=== PATIENT | male | born 1950 | race Caucasian/White ===

== ENCOUNTER 2018-08-22 08:48 | Emergency (ER) | payer BC, MEDICARE ==
--- NOTE | 2018-08-22 09:17 | EDM.PDOC ---
ED HPI GENERAL MEDICAL PROBLEM - General Chief Complaint: General Stated Complaint: STOMACH PAIN FLU SYMPTOMS Time Seen by Provider: 08/22/18 08:56 Source of Information: Reports: Patient, RN, RN Notes Reviewed History Limitations: Reports: No Limitations - History of Present Illness INITIAL COMMENTS - FREE TEXT/NARRATIVE: Patient presents to the ED at [facility] with URI symptoms. Patient denies any eye or ear symptoms. He complains of sinus pressure and pain. He feels somewhat dehydrated. He had a sore throat, but this has resolved. He is trying to stay well hydrated. No close contact with similar symptoms. Patient states he has significant sinus pressure and pain. Denies any ear problems. No fevers or chills. Patient also concerned about diarrhea that started yesterday. He states he has had several liquid stools. No abd pain. No cramping. No urinary symptoms. - Related Data Allergies Allergy/AdvReac Type Severity Reaction Status Date / Time sulfamethoxazole Allergy Rash Verified 11/24/13 08:49 trimethoprim Allergy Rash Verified 11/24/13 08:49 Home Meds: Home Meds Insulin Glarg,Human.Rec.Analog [Lantus Solostar] 10 units SQ BEDTIME 10/26/13 [ History] Liraglutide [Victoza 2-Varinder] 1.8 mg SQ DAILY 10/26/13 [History] glyBURIDE/Metformin [glyBURIDE/Metformin 5-500 MG] 5 - 500 mg PO BID 10/26/13 [ History] Metoclopramide [Reglan] 10 mg PO ACBED 11/21/13 [History] Sildenafil [Viagra] 50 mg PO ASDIRECTED PRN 11/21/13 [History] Amoxicillin/Potassium Clav [Augmentin 875-125 Tablet] 1 each PO BID 10 Days #20 tablet 08/22/18 [Rx] ED ROS GENERAL - Review of Systems Review Of Systems: See Below Constitutional: Denies: Fever, Chills HEENT: Reports: Rhinitis, Sinus Problem. Denies: Ear Pain, Throat Pain, Throat Swelling Respiratory: Denies: Shortness of Breath, Cough Cardiovascular: Denies: Chest Pain, Palpitations Skin: Reports: No Symptoms Neurological: Reports: No Symptoms ED EXAM, GENERAL - Physical Exam Exam: See Below Exam Limited By: No Limitations General Appearance: Alert, No Apparent Distress Eye Exam: Bilateral Eye: Normal Inspection, PERRL Ears: Normal Canal, Normal TMs Ear Exam: Bilateral Ear: TM normal Nose: Nasal Tenderness, Nasal Drainage, Other (Frontal and maxillary sinus pressure/pain to percussion) Throat/Mouth: Other (dry membranes; normal posterior oropharynx) Neck: Supple Respiratory/Chest: No Respiratory Distress, Lungs Clear, Decreased Breath Sounds Cardiovascular: Normal Peripheral Pulses, Regular Rate, Rhythm Neurological: Alert, Oriented Skin Exam: Warm, Dry, Intact Departure - Departure Time of Disposition: 09:21 Disposition: Home, Self-Care 01 Condition: Good Clinical Impression: Acute bacterial sinusitis, Sore throat Diarrhea Qualifiers: Diarrhea type: unspecified type Qualified Code(s): R19.7 - Diarrhea, unspecified - Discharge Information *PRESCRIPTION DRUG MONITORING PROGRAM REVIEWED*: Not Applicable *COPY OF PRESCRIPTION DRUG MONITORING REPORT IN PATIENT HAYLEE: Not Applicable Prescriptions: Amoxicillin/Potassium Clav [Augmentin 875-125 Tablet] 1 each PO BID 10 Days #20 tablet Instructions: Sinusitis, Adult Referrals: Smitha King DO [Physician] - Forms: ED Department Discharge Additional Instructions: 1. Stay well hydrated and rest 2. Take antibiotic for the full coarse, even if you are feeling better 3. Try and probiotic 4. Use Tylenol for pain 5. LOTS of water 6. See Dr. King as symptoms warrant - Problem List Review Problem List Initiated/Reviewed/Updated: Yes - Assessment/Plan Assessment:: Acute bacterial sinusitis Sore throat Viral gastroenteritis Plan: Start Augmentin for BID for 10 days. SE discussed. Stay well hydrated. May try Imodium as directed on package. See your PCP as symptoms warrant
== END 2018-08-22 09:40 | disposition home or self-care (01) ==
LOC: VM.ED 08:48
DX: J01.90 Acute sinusitis, unspecified (principal); B96.89 Other specified bacterial agents as the cause of diseases classified elsewhere; A08.4 Viral intestinal infection, unspecified; Z88.2 Allergy status to sulfonamides; Z88.8 Allergy status to other drugs, medicaments and biological substances; Z79.899 Other long term (current) drug therapy
CPT/HCPCS: 99283

== ENCOUNTER 2018-12-14 13:23 | Emergency (ER) | payer BC, MEDICARE ==
--- NOTE | 2018-12-14 16:02 | CR ---
[id number] RAD/RAD Humerus Left 2V EXAM: LEFT HUMERUS 2 VIEWS INDICATION: Fall several days ago. COMPARISON: None. 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 Remodeling of the undersurface of the acromion may relate to chronic rotator cuff tearing. No acute fracture or dislocation is identified. IMPRESSION: 1. No acute findings. Rustam Goldberg MD 12/14/18 [id number] Thank you for allowing us to participate in the care of your patient.
[2018-12-14] MEDS: Acetaminophen/HYDROcodone 325-10 MG Tab PO ONE (16:07)
[2018-12-14] MEDS: Take Home: Acetaminophen/HYDROcodone 325-5 MG, 5 Tab Pack PO ONE (16:24)
[2018-12-14 17:31] VITALS: BP 152/77
--- NOTE | 2018-12-22 05:08 | EDM.PDOC ---
ED HPI GENERAL MEDICAL PROBLEM - General Chief Complaint: Upper Extremity Injury/Pain Stated Complaint: FELL HURT LEFT ARM/WRIST Time Seen by Provider: 12/14/18 13:30 Source of Information: Reports: Patient, RN Notes Reviewed History Limitations: Reports: No Limitations - History of Present Illness INITIAL COMMENTS - FREE TEXT/NARRATIVE: Pt. presents to ER with complaints of L shoulder/upper arm pain. He was at work at time of accident. He was attempting to pull a stuck trailer pin out that was stuck. He subsequently fell backward onto an outstretched L arm. He complains of pain to his shoulder/upper portion of upper arm. No numbness or tingling to the extremity. He did not strike his head. He landed on his backside and was carrying a billfold and is subsequently experiencing so L buttock pain but it is resolving. Denies any numbness or tingling in the L arm. No crepitus. He states this happened immediately before coming to ER. Onset: Today Onset Date: 12/22/18 Location: Reports: Upper Extremity, Left Left Arm Pain Score (Numeric/FACES): 2 Left Upper Leg Pain Score (Numeric/FACES): 2 - Related Data Allergies Allergy/AdvReac Type Severity Reaction Status Date / Time sulfamethoxazole Allergy Rash Verified 12/14/18 16:14 trimethoprim Allergy Rash Verified 12/14/18 16:14 Home Meds: Home Meds Insulin Glarg,Human.Rec.Analog [Lantus Solostar] 10 units SQ BEDTIME 10/26/13 [ History] Liraglutide [Victoza 2-Varinder] 1.8 mg SQ DAILY 10/26/13 [History] glyBURIDE/Metformin [glyBURIDE/Metformin 5-500 MG] 5 - 500 mg PO BID 10/26/13 [ History] Metoclopramide [Reglan] 10 mg PO ACBED 11/21/13 [History] Sildenafil [Viagra] 50 mg PO ASDIRECTED PRN 11/21/13 [History] Past Medical History Endocrine/Metabolic History: Reports: Diabetes, Type II Social & Family History - Tobacco Use Smoking Status *Q: Never Smoker ED ROS GENERAL - Review of Systems Review Of Systems: See Below Constitutional: Reports: No Symptoms HEENT: Reports: No Symptoms Respiratory: Reports: No Symptoms Cardiovascular: Reports: No Symptoms Endocrine: Reports: No Symptoms GI/Abdominal: Reports: No Symptoms : Reports: No Symptoms Musculoskeletal: Reports: Shoulder Pain, Joint Pain (L shoulder) Skin: Reports: No Symptoms Neurological: Reports: No Symptoms ED EXAM, GENERAL - Physical Exam Exam: See Below Exam Limited By: No Limitations General Appearance: Alert, WD/WN, No Apparent Distress Extremities: Normal Inspection, No Pedal Edema, Normal Capillary Refill, Arm Pain, Limited Range of Motion, Other (No crepitus noted. CMS intact. ) Course - Vital Signs Last Recorded V/S: Last Vital Signs Temp 36.7 C 12/14/18 13:30 Pulse 60 12/14/18 13:30 Resp 16 12/14/18 13:30 BP 152/77 H 12/14/18 13:30 Pulse Ox 98 12/14/18 13:30 - Orders/Labs/Meds Meds: Medications Discontinued Medications Generic Name Dose Route Start Last Admin Trade Name Bhupinder PRN Reason Stop Dose Admin Hydrocodone Bitart/Acetaminophen 1 tab 12/14/18 16:02 12/14/18 16:07 [place] 325-10 Mg PO 12/14/18 16:03 1 tab ONETIME ONE Administration Hydrocodone Bitart/Acetaminophen 2 packet 12/14/18 16:16 12/14/18 16:24 Take Home: Acetam/Hydrocodon 325-5 Mg, 5 Pack PO 12/14/18 16:17 2 packet ONETIME ONE Administration - Radiology Interpretation Free Text/Narrative:: radiographs of the L humerus and shoulder were negative. Departure - Departure Time of Disposition: 14:30 Disposition: Home, Self-Care 01 Condition: Good Clinical Impression: Sprain of shoulder, left - Discharge Information Instructions: Acetaminophen; Hydrocodone tablets or capsules, RICE Therapy for Routine Care of Injuries, [id number], Shoulder Sprain Referrals: Smitha King DO [Primary Care Provider] - Forms: ED Department Discharge Additional Instructions: Home to rest Ibuprofen 200mg 2 tabs every 4-6 hours as needed for pain [place] 5/325mg 1 every 4-6 hours for severe pain Ice painful areas for 10-15 min every 1-2 hours Follow-up in clinic in 10-14 days for recheck with primary care, sooner if not gradually improving. - Problem List Review Problem List Initiated/Reviewed/Updated: Yes - Assessment/Plan Plan: Home to rest Ibuprofen 200mg 2 tabs every 4-6 hours as needed for pain [place] 5/325mg 1 every 4-6 hours for severe pain Ice painful areas for 10-15 min every 1-2 hours Follow-up in clinic in 10-14 days for recheck with primary care, sooner if not gradually improving.
== END 2018-12-14 16:25 | disposition home or self-care (01) ==
LOC: VM.ED 13:23
DX: S43.402A Unspecified sprain of left shoulder joint, initial encounter (principal); E11.9 Type 2 diabetes mellitus without complications; Z88.2 Allergy status to sulfonamides; Z88.1 Allergy status to other antibiotic agents; Z79.899 Other long term (current) drug therapy; Z79.4 Long term (current) use of insulin; W22.8XXA Striking against or struck by other objects, initial encounter
CPT/HCPCS: 73060-LT; 99283-25; A9270-GY

== ENCOUNTER 2020-05-02 14:35 | Emergency (ER) | payer OTHER ==
[2020-05-02] MEDS ORDERED: Take Home: Ondansetron 4 MG Tab.DIS, 2 Tab Pack PO ONE (15:05)
--- NOTE | 2020-05-02 15:13 | EDM.PDOC ---
ED HPI GENERAL MEDICAL PROBLEM - General Chief Complaint: General Time Seen by Provider: 05/02/20 14:35 Source of Information: Reports: Patient History Limitations: Reports: No Limitations - History of Present Illness INITIAL COMMENTS - FREE TEXT/NARRATIVE: Pt. presents to ER with complaints of cough, congestion, fatigue, diarrhea, and shortness of breath. He states that his cough is productive of esparza sputum. He states that he was seen in the [facility] for this on Sunday and was started on Azithromycin. His presentation medical center chart was reviewed, and there was no mention of cough. The reason for the visit at that time was chest pain post fall. Pt. denies any ill contacts that he was aware of. He was not tested for covid 19 or influenza in the clinic. Onset Date: 04/30/20 Location: Reports: Chest, Generalized - Related Data Allergies Allergy/AdvReac Type Severity Reaction Status Date / Time sulfamethoxazole Allergy Rash Verified 05/02/20 14:55 trimethoprim Allergy Rash Verified 05/02/20 14:55 Home Meds: Home Meds Insulin Glarg,Human.Rec.Analog [Lantus Solostar] 10 units SQ BEDTIME 10/26/13 [History] Liraglutide [Victoza 2-Varinder] 1.8 mg SQ DAILY 10/26/13 [History] Sildenafil [Viagra] 50 mg PO ASDIRECTED PRN 11/21/13 [History] Albuterol [Take Home: Albuterol 18 GM, 1 INH Pack] 2 puff IH Q4H PRN 05/02/20 [History] Aspirin [Aspirin EC] 81 mg PO DAILY 05/02/20 [History] Azithromycin 250 mg PO ASDIRECTED 05/02/20 [History] Dicyclomine [Bentyl] 10 mg PO TID 05/02/20 [History] Insulin Aspart [NovoLOG] 8 unit SQ WITHMEALSANDBED 05/02/20 [History] Propranolol HCl [Propranolol] 10 mg PO DAILY PRN 05/02/20 [History] metFORMIN HCl [Metformin HCl] 1,000 mg PO BID 05/02/20 [History] Past Medical History Cardiovascular History: Reports: High Cholesterol, Hypertension Respiratory History: Reports: Asthma Gastrointestinal History: Reports: Diverticulosis Musculoskeletal History: Reports: Other (See Below) Other Musculoskeletal History: plantar fascitis Endocrine/Metabolic History: Reports: Diabetes, Type II, Obesity/BMI 30+ Social & Family History - Tobacco Use Tobacco Use Status *Q: Never Tobacco User - Recreational Drug Use Recreational Drug Use: No ED ROS GENERAL - Review of Systems Review Of Systems: See Below Constitutional: Reports: Fatigue. Denies: Fever, Chills HEENT: Reports: Rhinitis, Throat Pain Respiratory: Reports: Shortness of Breath, Cough Cardiovascular: Reports: No Symptoms Endocrine: Reports: No Symptoms GI/Abdominal: Reports: Nausea. Denies: Vomiting : Reports: No Symptoms Musculoskeletal: Reports: No Symptoms Skin: Reports: No Symptoms Neurological: Reports: No Symptoms Psychiatric: Reports: No Symptoms Hematologic/Lymphatic: Reports: No Symptoms Immunologic: Reports: No Symptoms ED EXAM, GENERAL - Physical Exam Exam: See Below Exam Limited By: No Limitations General Appearance: Alert, WD/WN, No Apparent Distress Eye Exam: Bilateral Eye: EOMI, Normal Fundi, PERRL Throat/Mouth: Normal Inspection, Normal Lips, Normal Teeth, Normal Gums, Normal Oropharynx, Normal Voice, No Airway Compromise Head: Atraumatic, Normocephalic Neck: Normal Inspection, Supple, Non-Tender, Full Range of Motion Respiratory/Chest: No Respiratory Distress, Lungs Clear, Normal Breath Sounds, No Accessory Muscle Use, Chest Non-Tender Cardiovascular: Normal Peripheral Pulses, Regular Rate, Rhythm, No Edema, No JVD, No Murmur, No Rub GI/Abdominal: Soft, Non-Tender (Male) Exam: Deferred Rectal (Males) Exam: Deferred Back Exam: Normal Inspection, Full Range of Motion Extremities: Normal Inspection, Normal Range of Motion, Non-Tender, No Pedal Edema, Normal Capillary Refill Neurological: Alert, Oriented, CN II-XII Intact, Normal Cognition, Normal Reflexes, No Motor/Sensory Deficits Psychiatric: Normal Affect, Normal Mood Skin Exam: Warm, Dry, Intact, Normal Color Lymphatic: No Adenopathy Course - Vital Signs Last Recorded V/S: Last Vital Signs Temp 36.7 C 05/02/20 14:35 Pulse 65 05/02/20 14:35 Resp 16 05/02/20 14:35 BP 139/71 05/02/20 14:35 Pulse Ox 97 05/02/20 14:35 - Orders/Labs/Meds Orders: Active Orders 24 hr Category Date Time Status CORONAVIRUS COVID-19 PCR PHL Stat Lab 05/02/20 14:42 Ordered Labs: Laboratory Tests 05/02/20 Range/Units 14:45 SARS CoV-2 RNA Rapid ANDRY Positive H (NEGATIVE) Meds: Medications Discontinued Medications Generic Name Dose Route Start Last Admin Trade Name Bhupinder PRN Reason Stop Dose Admin Ondansetron HCl 2 packet 05/02/20 15:05 Take Home: Ondansetron Odt 4 Mg, 2 Tab Pack PO 05/02/20 15:06 ONETIME ONE Departure - Departure Time of Disposition: 15:34 Disposition: Home, Self-Care 01 Clinical Impression: COVID-19 - Discharge Information Instructions: COVID-19 Frequently Asked Questions, COVID-19, Ondansetron oral dissolving tablet Referrals: Smitha King DO [Primary Care Provider] - Forms: ED Department Discharge Additional Instructions: Home to rest. Dept of health will be in contact with you regarding how long you and your /contacts need to quarantine for. It is usually 14 days, but they will give you better information based on your symptom onset. Finish the Azithromyin. This is an antibiotic, but you've been on it since the , and might as well complete the course. Zofran ODT 4mg 1 every 4-6 hours as needed for nausea/vomiting. Tylenol as needed for fever. Return to ER if you have trouble breathing or other worrisome signs/symptoms. Feel free to call if you have questions. Sepsis Event Note (ED) - Evaluation Sepsis Screening Result: No Definite Risk - Focused Exam Vital Signs: Vital Signs Temp Pulse Resp BP Pulse Ox 05/02/20 14:35 36.7 C 65 16 139/71 97 - Problem List Review Problem List Initiated/Reviewed/Updated: Yes - My Orders Last 24 Hours: My Active Orders 05/02/20 14:42 CORONAVIRUS COVID-19 PCR PHL Stat - Assessment/Plan Last 24 Hours: My Active Orders 05/02/20 14:42 CORONAVIRUS COVID-19 PCR PHL Stat Plan: Home to rest. Dept of health will be in contact with you regarding how long you and your /contacts need to quarantine for. It is usually 14 days, but they will give you better information based on your symptom onset. Finish the Azithromyin. This is an antibiotic, but you've been on it since the , and might as well complete the course. Zofran ODT 4mg 1 every 4-6 hours as needed for nausea/vomiting. Tylenol as needed for fever. Return to ER if you have trouble breathing or other worrisome signs/symptoms. Feel free to call if you have questions.
== END 2020-05-02 15:45 | disposition home or self-care (01) ==
LOC: VM.ED 14:35
DX: U07.1 COVID-19 (principal); I10 Essential (primary) hypertension; J45.909 Unspecified asthma, uncomplicated; E11.9 Type 2 diabetes mellitus without complications; E66.9 Obesity, unspecified; Z88.2 Allergy status to sulfonamides; Z79.4 Long term (current) use of insulin; Z79.899 Other long term (current) drug therapy
CPT/HCPCS: 87804; 87804-59; 99283; 99284; A9270-GY; U0002

== ENCOUNTER 2023-06-02 21:28 | Emergency (ER) | payer OTHER, MEDICARE | END 2023-06-02 22:39 | disposition home or self-care (01) | LOC: VM.ED 21:28 | DX: R07.81 Pleurodynia (principal); M25.511 Pain in right shoulder; I10 Essential (primary) hypertension; J45.909 Unspecified asthma, uncomplicated; E78.00 Pure hypercholesterolemia, unspecified; E11.9 Type 2 diabetes mellitus without complications; E66.9 Obesity, unspecified; Z68.41 Body mass index [BMI] 40.0-44.9, adult; Z86.16 Personal history of COVID-19; Z79.84 Long term (current) use of oral hypoglycemic drugs; Z79.82 Long term (current) use of aspirin; Z79.899 Other long term (current) drug therapy; Z79.4 Long term (current) use of insulin; Z88.1 Allergy status to other antibiotic agents; Z88.2 Allergy status to sulfonamides; Y04.8XXA Assault by other bodily force, initial encounter; Y92.511 Restaurant or cafe as the place of occurrence of the external cause | CPT/HCPCS: 71101-LT; 99283 ==

== ENCOUNTER 2024-09-07 18:47 | Emergency (ER) | payer MEDICARE, OTHER ==
[2024-09-07 19:42] LABS: BASOPHILS PERCENT AUTO 0.1 % (0.2-1.2); EOSINOPHILS PERCENT AUTO 0.2 % (0.0-4.0); HEMATOCRIT 39.4 % (40.0-52.0); HEMOGLOBIN 13.3 g/dL (14.0-18.0); IMMATURE GRAN ABSOLUTE AUTO 0.02 x10^3/uL (0.00-0.07); LYMPHOCYTES ABSOLUTE AUTO 0.5 x10^3/uL (1.0-4.8); LYMPHOCYTES PERCENT AUTO 4.8 % (25.0-50.0); MEAN CORPUSCULAR HEMOGLOBIN 30.5 pg (26.0-32.0); MEAN CORPUSCULAR HGB CONC 33.8 g/dL (32.0-36.0); MEAN CORPUSCULAR VOLUME 90.4 fL (78.0-93.0); MONOCYTES ABSOLUTE AUTO 0.4 x10^3/uL (0.0-0.8); MONOCYTES PERCENT AUTO 3.2 % (2.0-11.0); NEUTROPHILS ABSOLUTE AUTO 9.9 x10^3/uL (1.8-7.7); NEUTROPHILS PERCENT AUTO 91.5 % (50.0-80.0); RED BLOOD CELL COUNT 4.36 x10^6/uL (4.5-6.0); WHITE BLOOD CELL COUNT,WBC 10.8 x10^3/uL (4.0-10.0)
[2024-09-07] MEDS: Lactated Ringers 1,000 ML IV SCH (19:45)
[2024-09-07 19:49] LABS: PLATELET COUNT,PLT 196 x10^3/uL (130-400)
[2024-09-07] MEDS: Acetaminophen 325 MG Tab PO ONE (19:50)
[2024-09-07 20:08] LABS: A/G RATIO 0.94; ALBUMIN 3.2 g/dL (3.4-5.0); BILIRUBIN TOTAL 0.5 mg/dL (0.2-1.0); CALCIUM 8.6 mg/dL (8.5-10.1); CREATININE 0.8 mg/dL (0.70-1.30); EST CRCL DRUG DOSING (CG) 79.56 mL/min; MAGNESIUM 1.7 mg/dL (1.8-2.4); PROTEIN TOTAL,TP 6.6 g/dL (6.4-8.2)
[2024-09-07] MEDS: Ondansetron 4 MG/2 ML SDV IVPUSH ONE (20:36)
[2024-09-07] MEDS: Ibuprofen 200 MG Tab PO STA (21:00)
== END 2024-09-07 21:15 | disposition home or self-care (01) ==
LOC: VM.ED 18:47
DX: K52.9 Noninfective gastroenteritis and colitis, unspecified (principal); I10 Essential (primary) hypertension; J45.909 Unspecified asthma, uncomplicated; E11.9 Type 2 diabetes mellitus without complications; E66.9 Obesity, unspecified; Z68.41 Body mass index [BMI] 40.0-44.9, adult; Z86.16 Personal history of COVID-19; Z88.8 Allergy status to other drugs, medicaments and biological substances; Z79.4 Long term (current) use of insulin; Z79.51 Long term (current) use of inhaled steroids; Z79.82 Long term (current) use of aspirin; Z79.84 Long term (current) use of oral hypoglycemic drugs; Z79.899 Other long term (current) drug therapy
CPT/HCPCS: 80053; 83605; 83735; 85025; 96361; 96374; 99284; 99284-25; A9270-GY; J2405; J7120

== ENCOUNTER 2024-09-27 21:48 | Emergency (ER) | payer MEDICARE ==
[2024-09-27] MEDS ORDERED: Sodium Chloride 0.9% 10 ML Syringe FLUSH PRN (22:24)
[2024-09-27 22:40] LABS: BASOPHILS PERCENT AUTO 0.1 % (0.2-1.2); EOSINOPHILS ABSOLUTE AUTO 0.1 x10^3/uL (0.0-0.5); EOSINOPHILS PERCENT AUTO 0.8 % (0.0-4.0); HEMATOCRIT 36.4 % (40.0-52.0); HEMOGLOBIN 12.3 g/dL (14.0-18.0); IMMATURE GRAN ABSOLUTE AUTO 0.04 x10^3/uL (0.00-0.07); LYMPHOCYTES ABSOLUTE AUTO 1.1 x10^3/uL (1.0-4.8); LYMPHOCYTES PERCENT AUTO 7.9 % (25.0-50.0); MEAN CORPUSCULAR HEMOGLOBIN 30.6 pg (26.0-32.0); MEAN CORPUSCULAR HGB CONC 33.8 g/dL (32.0-36.0); MEAN CORPUSCULAR VOLUME 90.5 fL (78.0-93.0); MONOCYTES ABSOLUTE AUTO 1.1 x10^3/uL (0.0-0.8); MONOCYTES PERCENT AUTO 7.8 % (2.0-11.0); NEUTROPHILS ABSOLUTE AUTO 11.3 x10^3/uL (1.8-7.7); NEUTROPHILS PERCENT AUTO 83.1 % (50.0-80.0); PLATELET COUNT,PLT 253 x10^3/uL (130-400); RED BLOOD CELL COUNT 4.02 x10^6/uL (4.5-6.0); WHITE BLOOD CELL COUNT,WBC 13.6 x10^3/uL (4.0-10.0)
[2024-09-27] MEDS: Albuterol/Ipratropium 3.0-0.5 MG/3 ML Neb Soln NEB ONE ×2 (22:40→23:39)
[2024-09-27] MEDS: methylPREDNISolone Sodium Succinate 125 MG/2 ML SDV IVPUSH ONE (22:42)
[2024-09-27 22:54] LABS: A/G RATIO 0.86; ALBUMIN 3.2 g/dL (3.4-5.0); ANION GAP 12.5 mmol/L (5-15); BILIRUBIN TOTAL 0.4 mg/dL (0.2-1.0); CALCIUM 8.9 mg/dL (8.5-10.1); CREATININE 0.8 mg/dL (0.70-1.30); EST CRCL DRUG DOSING (CG) 76.89 mL/min; MAGNESIUM 1.8 mg/dL (1.8-2.4); POTASSIUM,K 4.5 mmol/L (3.5-5.1); PROTEIN TOTAL,TP 6.9 g/dL (6.4-8.2)
[2024-09-27] MEDS: Budesonide 0.5 MG/2 ML Neb Susp NEB ONE (23:47)
[2024-09-27] MEDS: Azithromycin 250 MG Tab PO ONE (23:47)
[2024-09-27] MEDS: Take Home: Azithromycin 250 MG, 2 Tab Pack PO ONE (23:48)
== END 2024-09-28 00:07 | disposition home or self-care (01) ==
LOC: VM.ED 21:48
DX: J20.5 Acute bronchitis due to respiratory syncytial virus (principal); I10 Essential (primary) hypertension; E78.00 Pure hypercholesterolemia, unspecified; E11.9 Type 2 diabetes mellitus without complications; J45.909 Unspecified asthma, uncomplicated; Z86.16 Personal history of COVID-19; Z88.2 Allergy status to sulfonamides; Z88.8 Allergy status to other drugs, medicaments and biological substances; Z79.4 Long term (current) use of insulin; Z79.51 Long term (current) use of inhaled steroids; Z79.899 Other long term (current) drug therapy; Z79.84 Long term (current) use of oral hypoglycemic drugs
CPT/HCPCS: 36415; 71045; 80053; 83605; 83735; 85025; 87040; 94640; 96374; 99284; 99285-25; A9270-GY; J2919; J3490

== ENCOUNTER 2024-12-04 19:28 | Emergency (ER) | payer MEDICARE ==
[2024-12-04] MEDS ORDERED: Sodium Chloride 0.9% 10 ML Syringe FLUSH PRN (19:57)
[2024-12-04] MEDS: Acetaminophen 500 MG Tab PO ONE (20:03)
[2024-12-04 20:42] LABS: BASOPHILS PERCENT AUTO 0.2 % (0.2-1.2); EOSINOPHILS ABSOLUTE AUTO 0.2 x10^3/uL (0.0-0.5); EOSINOPHILS PERCENT AUTO 2.1 % (0.0-4.0); HEMATOCRIT 41.3 % (40.0-52.0); HEMOGLOBIN 13.7 g/dL (14.0-18.0); IMMATURE GRAN ABSOLUTE AUTO 0.02 x10^3/uL (0.00-0.07); LYMPHOCYTES ABSOLUTE AUTO 0.6 x10^3/uL (1.0-4.8); MEAN CORPUSCULAR HGB CONC 33.2 g/dL (32.0-36.0); MEAN CORPUSCULAR VOLUME 90.4 fL (78.0-93.0); MONOCYTES ABSOLUTE AUTO 0.6 x10^3/uL (0.0-0.8); MONOCYTES PERCENT AUTO 6.9 % (2.0-11.0); NEUTROPHILS ABSOLUTE AUTO 7.3 x10^3/uL (1.8-7.7); NEUTROPHILS PERCENT AUTO 83.6 % (50.0-80.0); PLATELET COUNT,PLT 181 x10^3/uL (130-400); RED BLOOD CELL COUNT 4.57 x10^6/uL (4.5-6.0); WHITE BLOOD CELL COUNT,WBC 8.7 x10^3/uL (4.0-10.0)
[2024-12-04 21:09] LABS: A/G RATIO 0.97; ALBUMIN 3.3 g/dL (3.4-5.0); ANION GAP 11.4 mmol/L (5-15); BILIRUBIN TOTAL 0.4 mg/dL (0.2-1.0); CALCIUM 8.5 mg/dL (8.5-10.1); CREATININE 0.8 mg/dL (0.70-1.30); EST CRCL DRUG DOSING (CG) 79.56 mL/min; POTASSIUM,K 4.4 mmol/L (3.5-5.1); PROTEIN TOTAL,TP 6.7 g/dL (6.4-8.2)
[2024-12-04 21:21] LABS: CORONAVIRUS COVID-19 NAA NEGATIVE (NEGATIVE); INFLUENZA A NAA NEGATIVE (NEGATIVE); INFLUENZA B NAA NEGATIVE (NEGATIVE); RESPIRATORY SYNCYTIAL VIR NAA NEGATIVE (NEGATIVE)
[2024-12-04 21:27] LABS: APPEARANCE,URINE CLEAR (CLEAR); BILIRUBIN,URINE NEGATIVE (NEGATIVE); COLOR,URINE YELLOW (YELLOW); GLUCOSE,URINE NEGATIVE (NEGATIVE); KETONES,URINE 15 mg/dL (NEGATIVE); LEUKOCYTE ESTERASE,URINE SMALL (NEGATIVE); NITRITE,URINE NEGATIVE (NEGATIVE); OCCULT BLOOD,URINE NEGATIVE (NEGATIVE); PH,URINE 5.5 (5.0-8.0); PROTEIN,URINE NEGATIVE (NEGATIVE); UROBILINOGEN,URINE 0.2 EU/dL (0.2)
[2024-12-04 21:36] LABS: BACTERIA,URINE RARE /HPF (NOT SEEN); HYALINE CASTS,URINE RARE; RBC,URINE 0-5 /HPF (NOT SEEN); SQUAMOUS EPITHELIAL CELLS,UR FEW /HPF (NOT SEEN)
[2024-12-04] MEDS: Iopamidol 612 MG/ML 100 ML Bottle IVPUSH ONE (21:40)
== END 2024-12-04 22:33 | disposition home or self-care (01) ==
LOC: VM.ED 19:28
DX: A08.4 Viral intestinal infection, unspecified (principal); I10 Essential (primary) hypertension; J45.909 Unspecified asthma, uncomplicated; E11.9 Type 2 diabetes mellitus without complications; Z86.16 Personal history of COVID-19; Z88.8 Allergy status to other drugs, medicaments and biological substances; Z79.4 Long term (current) use of insulin; Z79.51 Long term (current) use of inhaled steroids; Z79.82 Long term (current) use of aspirin; Z79.84 Long term (current) use of oral hypoglycemic drugs; Z79.899 Other long term (current) drug therapy
CPT/HCPCS: 0241U; 71045; 74177; 80053; 81001; 83605; 83690; 84484; 85025; 99284; A9270; Q9967; 36415

== ENCOUNTER 2025-05-25 09:35 | Emergency (ER) | payer MEDICARE ==
[2025-05-25] MEDS ORDERED: Sodium Chloride 0.9% 10 ML Syringe FLUSH PRN (09:41)
[2025-05-25] MEDS: methylPREDNISolone Sodium Succinate 125 MG/2 ML SDV IV ONE (10:16)
[2025-05-25 10:19] LABS: BASOPHILS ABSOLUTE AUTO 0.0 x10^3/uL (0.0-0.2); BASOPHILS PERCENT AUTO 0.7 % (0.2-1.2); EOSINOPHILS ABSOLUTE AUTO 0.2 x10^3/uL (0.0-0.5); EOSINOPHILS PERCENT AUTO 3.8 % (0.0-4.0); IMMATURE GRAN ABSOLUTE AUTO 0.01 x10^3/uL (0.00-0.07); IMMATURE GRAN PERCENT AUTO 0.20 % (0.00-0.43); LYMPHOCYTES ABSOLUTE AUTO 1.0 x10^3/uL (1.0-4.8); LYMPHOCYTES PERCENT AUTO 16.2 % (25.0-50.0); MONOCYTES ABSOLUTE AUTO 0.6 x10^3/uL (0.0-0.8); MONOCYTES PERCENT AUTO 9.1 % (2.0-11.0); NEUTROPHILS ABSOLUTE AUTO 4.3 x10^3/uL (1.8-7.7); NEUTROPHILS PERCENT AUTO 70.0 % (50.0-80.0); PLATELET COUNT,PLT 181 x10^3/uL (130-400); RED BLOOD CELL COUNT 4.06 x10^6/uL (4.5-6.0); WHITE BLOOD CELL COUNT,WBC 6.1 x10^3/uL (4.0-10.0)
[2025-05-25 10:33] LABS: INR 1.0 (0.9-1.1); PTT,PARTIAL THROMBOPLSTIN TIME 23.2 SEC (24.3-33.4)
[2025-05-25 10:39] LABS: LACTIC ACID 1.3 mmol/L (0.4-2.0)
[2025-05-25 10:47] LABS: A/G RATIO 1.03; ALANINE AMINOTRANSFERASE,ALT 16 U/L (16-63); ASPARTATE AMNIOTRANSFERASE,AST 10 U/L (15-37); BILIRUBIN TOTAL 0.6 mg/dL (0.2-1.0); BLOOD UREA NITROGEN,BUN 10 mg/dL (7-18); CARBON DIOXIDE,CO2 31 mmol/L (21-32); CHLORIDE,CL 102 mmol/L (98-107); CREATININE 0.5 mg/dL (0.70-1.30); ESTIMATED GFR 107 mL/min (>=60); GLUCOSE RANDOM 98 mg/dL (70-99); POTASSIUM,K 4.2 mmol/L (3.5-5.1); PRO B-TYPE NATRIUR PEPT,BNPPRO 184 pg/mL (<=125); PROTEIN TOTAL,TP 7.1 g/dL (6.4-8.2); SODIUM,NA 141 mmol/L (136-145)
[2025-05-25 10:59] LABS: CORONAVIRUS COVID-19 NAA NEGATIVE (NEGATIVE); INFLUENZA A NAA NEGATIVE (NEGATIVE); INFLUENZA B NAA NEGATIVE (NEGATIVE); RESPIRATORY SYNCYTIAL VIR NAA NEGATIVE (NEGATIVE)
== END 2025-05-25 11:29 | disposition home or self-care (01) ==
LOC: VM.ED 09:35
DX: J45.901 Unspecified asthma with (acute) exacerbation (principal); I10 Essential (primary) hypertension; E78.00 Pure hypercholesterolemia, unspecified; Z88.2 Allergy status to sulfonamides; Z88.8 Allergy status to other drugs, medicaments and biological substances; Z79.4 Long term (current) use of insulin; Z79.84 Long term (current) use of oral hypoglycemic drugs; Z79.899 Other long term (current) drug therapy; Z79.82 Long term (current) use of aspirin; Z86.16 Personal history of COVID-19
CPT/HCPCS: 36415; 71045; 80053; 83605; 83735; 83880; 84484; 85025; 85379; 85610; 85730; 86140; 87040; 87637; 93005; 93010; 94640; 96374; 96375; 99284; 99285-25; A9270-GY; J0696; J2919